=== PATIENT | female | born 1975 | race Caucasian/White ===

== ENCOUNTER 2018-11-04 14:40 | Emergency (ER) | payer BC ==
[2018-11-04] MEDS ORDERED: ASPIRIN 81 MG TABLET, CHEWABLE PO ONE (14:59)
[2018-11-04 15:10] LABS: ABSOLUTE BASOPHILS # (AUTO) 0.1 10^3/uL (0.0-0.2); ABSOLUTE EOSINOPHILS # (AUTO) 0.1 10^3/uL (0.0-0.6); ABSOLUTE LYMPHOCYTES (AUTO) 3.1 10^3/uL (0.5-4.7); ABSOLUTE MONOCYTES (AUTO) 0.9 10^3/uL (0.1-1.4); ABSOLUTE NEUT (AUTO) 8.6 10^3/uL (1.7-8.2); BASOPHILS % (AUTO) 0.6 % (0-2); EOSINOPHILS % (AUTO) 0.8 % (0-6); HEMATOCRIT 38.6 % (36.0-47.0); HEMOGLOBIN 12.8 g/dL (12.0-15.5); LYMPHOCYTES % (AUTO) 24.3 % (13-45); MEAN CORPUSCULAR HEMOGLOBIN 28.5 pg (27.0-33.4); MEAN CORPUSCULAR VOLUME 86 fl (80-97); MONOCYTES % (AUTO) 7.1 % (3-13); PLATELET COUNT 291 10^3/uL (150-450); RED BLOOD COUNT 4.47 10^6/uL (3.72-5.28); RED CELL DISTRIBUTION WIDTH 15.3 % (11.5-14.0); SEGMENTED NEUTROPHILS % (AUTO) 67.2 % (42-78); TOTAL CELLS COUNTED % (AUTO) 100 %; WHITE BLOOD COUNT 12.7 10^3/uL (4.0-10.5)
[2018-11-04] MEDS ORDERED: KETOROLAC TROMETHAMINE INJ/PF 30 MG/1 ML SDV IV ONE (15:20)
[2018-11-04] MEDS ORDERED: NORMAL SALINE 500 ML IV ONE (15:20)
--- NOTE | 2018-11-04 15:21 | ER Document Report ---
ED General - General Chief Complaint: Chest Pain Stated Complaint: CHEST PAIN Time Seen by Provider: 11/04/18 14:49 TRAVEL OUTSIDE OF THE [place] IN LAST 30 DAYS: No - HPI Notes: Patient presents to the emergency department for evaluation of chest pain. She actually had chest pain earlier this week. It is on the left side, she states it has been a dull ache but has had intermittent very sharp and stabbing pains. It radiates to her left posterior rib cage. She feels very dizzy and near syncopal with it. In fact she states she had 2 episodes of syncope on Monday morning. She was actually admitted to [facility]. She had a stress test, MRI, CT angiogram. These were all found to be negative. Of note the patient just started Adderall, started this 1 week ago. She states this morning she had sudd en onset of the sharp pain again. Her heart rate was 47, then went right back up to 116. She presents to the ED for further evaluation. He denies significant chest pain at this time, states is just a dull pain that she had had before. She does have a headache. She has a history of migraines. It is a typical headache for her. She states she gets them about once a month. - Related Data Allergies/Adverse Reactions: Penicillins Allergy (Severe, Verified 11/04/18 15:10) Hives Sulfa (Sulfonamide Antibiotics) Allergy (Mild, Verified 11/04/18 15:11) Past Medical History - General Information source: Patient - Social History Smoking Status: Never Smoker Family History: CAD Patient has suicidal ideation: No Patient has homicidal ideation: No Renal/ Medical History: Denies: Hx Peritoneal Dialysis Past Surgical History: Reports: Hx Section, Hx Tubal Ligation Review of Systems - Review of Systems Constitutional: No symptoms reported EENT: No symptoms reported Cardiovascular: See HPI Respiratory: No symptoms reported Gastrointestinal: No symptoms reported Genitourinary: No symptoms reported Musculoskeletal: No symptoms reported Skin: No symptoms reported Neurological/Psychological: No symptoms reported Physical Exam - Vital signs Vitals: Temp Pulse Resp BP 98 F 99 13 149/93 H 11/04/18 14:43 11/04/18 14:43 11/04/18 14:43 11/04/18 14:43 - Notes Notes: Vital signs reviewed, please refer to chart. Patient is normocephalic, atraumatic. Pupils equal round, reactive to light. Neck is supple without m eningismus. Heart is regular rate and rhythm. Lungs are clear to auscultation bilaterally. Abdomen is soft, nontender, normoactive bowel sounds throughout. Extremities without cyanosis, clubbing, edema. Peripheral pulses are equal. Skin is warm and dry. Patient is awake, alert, oriented x3. Cranial nerves II through XII are grossly intact without focal neurological deficits. Strength is plus 5 out of 5 both upper and lower extremities. Sensation is intact. Flexes symmetrical. Gait is within normal limits. Course - Re-evaluation Re-evalutation: 11/04/18 15:19 Patient presents to the emergency department for evaluation of chest pain. She had a recent significant evaluation for that at [facility]. She has a discharge papers with her. She had a CT angiogram. She had an exercise stress test which was negative. She had an MRI of the brain which is negative. My strong suspicion is that the patient may be experiencing side effects from the Adderall. We will treat her headache, which is again an unremarkable headache for her. Will evaluate for cardiac etiology 11/04/18 15:21 11/04/18 17:15 Patient feeling somewhat improved. She does have intermittent chest pains. She had a completely appropriate workup at [facility]. All of her symptoms coincide within a few days of initiation of Adderall. I strongly suspect that is responsible for her chest pain, palpitations, near syncopal symptoms. I encouraged her to quit taking this medication and follow-up with her primary care physician. She is amenable to this plan. She is to return to the emergency department with worsening or new concerning symptoms. - Vital Signs Vital signs: Temp Pulse Resp BP Pulse Ox 98 F 99 20 137/91 H 96 11/04/18 14:43 11/04/18 14:43 11/04/18 16:31 11/04/18 16:31 11/04/18 16:31 - Laboratory Result Diagrams: 11/04/18 14:55 11/04/18 14:55 Laboratory results interpreted by me: 11/04/18 11/04/18 14:55 14:55 WBC 12.7 H RDW 15.3 H Absolute Neutrophils 8.6 H Total Bilirubin 0.1 L - Diagnostic Test Radiology reviewed: Image reviewed Radiology results interpreted by me: 11/04/18 17:16 Chest x-ray reviewed by myself, without the aid of radiologist, she has no acute cardiopulmonary disease. Discharge - Discharge Clinical Impression: Chest pain of uncertain etiology Condition: Stable Disposition: HOME, SELF-CARE Instructions: Chest Pain of Unclear Cause ([facility]) Additional Instructions: My suspicion is that your chest pain is secondary to the Adderall. I recommend discontinuation of this medication. Follow-up with your doctor this week. Return to the emergency department with worsening or new concerning symptoms.
[2018-11-04 15:34] LABS: ALANINE AMINOTRANSFERASE 28 U/L (9-52); ALKALINE PHOSPHATASE 65 U/L (38-126); ANION GAP 9 (5-19); ASPARTATE AMINO TRANSFERASE 16 U/L (14-36); BILIRUBIN,DIRECT 0.1 mg/dL (0.0-0.4); BILIRUBIN,TOTAL 0.1 mg/dL (0.2-1.3); BLOOD UREA NITROGEN 11 mg/dL (7-20); CARBON DIOXIDE 27 mmol/L (22-30); CHLORIDE 105 mmol/L (98-107); CREATINE KINASE 30 U/L (30-135); GLUCOSE 84 mg/dL (75-110); POTASSIUM 4.6 mmol/L (3.6-5.0); TOTAL PROTEIN 7.1 g/dL (6.3-8.2)
[2018-11-04 15:45] LABS: CREATINE KINASE MB < 0.22 ng/mL (<4.55); TROPONIN I < 0.012 ng/mL
[2018-11-04 17:58] VITALS: BP 118/73
--- NOTE | 2018-11-04 21:17 | RADIOLOGY REPORT (SQ) ---
EXAM DESCRIPTION: XR CHEST 1 VIEW COMPLETED DATE/TME: 11/04/2018 14:59 CLINICAL HISTORY: 43 years, Female, chest pain COMPARISON: None. NUMBER OF VIEWS: One TECHNIQUE: Single frontal view of the chest was obtained portably LIMITATIONS: None. FINDINGS: Cardiac and mediastinal contours are stable. Lungs are clear. No pleural effusion or pneumothorax. IMPRESSION: No acute disease. copyright 2010 [email or web address]- All Rights Reserved
--- NOTE | 2018-11-05 07:01 | EKG REPORT ---
SEVERITY:- ABNORMAL ECG - SINUS RHYTHM LEFT VENTRICULAR HYPERTROPHY : Confirmed by: Kellie Rose 05-Nov-2018 07:01:08
== END 2018-11-04 17:56 | disposition home or self-care (01) ==
LOC: ER 14:40
DX: R07.9 Chest pain, unspecified (principal); R55 Syncope and collapse; R51 Headache; Z86.69 Personal history of other diseases of the nervous system and sense organs; Z88.0 Allergy status to penicillin; Z88.2 Allergy status to sulfonamides
CPT/HCPCS: 93005; 99284; 96361; 96374; 36415; 82553; 82550; 85025; 80053; 84484; 71045; 93010; J1885; J7040